=== PATIENT | male | born 1935 | race Caucasian/White ===

== ENCOUNTER 2019-09-17 18:50 | Inpatient (IN) | payer MEDICARE, BC ==
[~2019-09-17] VITALS: Ht 172.7 cm; Wt 69.4 kg
[2019-09-17] MEDS ORDERED: ASPIRIN325 MG PO (19:01)
[2019-09-17] MEDS ORDERED: OMEPRAZOLE40 MG PO (19:35)
[2019-09-17] MEDS ORDERED: GLUCOPHAGE500 MG PO (19:35)
[2019-09-17] MEDS ORDERED: FUROSEMIDE20 MG PO (19:36)
[2019-09-17] MEDS ORDERED: BUSPAR10 MG PO (19:36)
[2019-09-17] MEDS ORDERED: METOPROLOL TART50 MG PO (19:36)
[2019-09-17] MEDS ORDERED: CELEXA40 MG PO (19:37)
[2019-09-17] MEDS ORDERED: LIPITOR20 MG PO (19:37)
[2019-09-17] MEDS ORDERED: FLOMAX0.4 MG PO (19:37)
[2019-09-17] MEDS ORDERED: ATIVAN1 MG PO (19:37)
[2019-09-17] MEDS ORDERED: CENTRUM MEN'S1 EACH PO (19:38)
[2019-09-17] MEDS ORDERED: LEVEMIR IN100 UNITS/ SC (19:38)
[2019-09-17 19:57] LABS: BASOPHILS 0.5 % (0-2); HEMATOCRIT 30.3 % (42.0-54.0); HEMOGLOBIN 9.5 g/dL (13.5-17.5); IMMATURE GRANULOCYTES 0.2 % (0-5); LYMPHOCYTES 15.3 % (15-50); MCH 30.1 pg (26.0-34.0); MCHC 31.4 g/dL (31.0-37.0); MCV 95.9 fL (80.0-100.0); MEAN PLATELET VOLUME 9.7 fL (7.4-10.4); MONOCYTES 7.2 % (2-11); NEUTROPHILS 74.8 % (40-80); RBC 3.16 10x6/uL (4.20-6.10); RDW 13.6 % (11.5-14.5); WBC 9.5 10x3/uL (4.8-10.8)
[2019-09-17 19:59] LABS: PLATELET COUNT 207 10x3/uL (130-400)
[2019-09-17 20:01] LABS: CALC OSMOLALITY 289 mosm/kg (275-300); CALCIUM 9.4 mg/dL (8.5-10.1); CARBON DIOXIDE 30.3 mmol/L (21.0-32.0); CHLORIDE - SERUM 105 mmol/L (98-107); CREATININE - SERUM 2.1 mg/dL (0.6-1.3); GLUCOSE 169 mg/dL (74-106); POTASSIUM - SERUM 4.8 mmol/L (3.5-5.1); SODIUM 139 mmol/L (136-145); UREA NITROGEN 34 mg/dL (7-18); eGFR NON AFRICAN AMERICAN 32 mL/min (90-120)
--- NOTE | 2019-09-17 20:01 | NUR ---
STERI STRIPS PLACED ON WOUND ON PT'S LEFT HAND PER MD ORDERS. PT TOLERATED WELL.
[2019-09-17 20:15] LABS: ALKALINE PHOSPHATASE 68 U/L (30-120); ALT (SGPT) 16 U/L (10-68); CREATINE KINASE 117 UL (21-232); MAGNESIUM - SERUM 1.9 mg/dL (1.8-2.4); PRO BNP 1951 pg/mL (0-450); PROTEIN - SERUM 7.5 g/dL (6.4-8.2); THYROID STIMULATING HORMONE 4.31 uIU/mL (0.36-3.74)
[2019-09-17 20:16] LABS: APTT 30.3 SECONDS (22.8-39.4); INR 0.94 (0.85-1.17); PROTIME 12.5 SECONDS (11.6-15.0); TROPONIN-I < 0.017 ng/mL (0.000-0.060)
--- NOTE | 2019-09-17 20:25 | NUR ---
ATTEMPTED TO CALL REPORT TO FLOOR, NURSE UNAVAILABLE AT THIS TIME. WILL CALL BACK.
--- NOTE | 2019-09-17 21:30 | NUR ---
A&0 X 4. AT BEDSIDE. AMBULATES WITH STANDBY ASSIST. SUZETTE SARAH IN USE, SCDS AND I.S. IN ROOM. NO ORDERS FOR NPO AFTER MIDNIGHT, BUT ENCOURAGED PT TO FAST AFTER MIDNIGHT TO BE SAFE. DENIES WANTING A SNACK CURRENTLY. NO NEEDS VOICED, CTM.
[2019-09-18] VITALS (10 sets, daily range): BP systolic 104–153; BP diastolic 55–71; Ht 172.7 cm; Wt 69.4 kg
[2019-09-18 03:03] LABS: BILIRUBIN NEGATIVE (NEGATIVE); GLUCOSE NEGATIVE (NEGATIVE); KETONE NEGATIVE (NEGATIVE); NITRITE NEGATIVE (NEGATIVE); UROBILINOGEN NORMAL (NORMAL)
--- NOTE | 2019-09-18 09:45 | NUR ---
PT LAYING IN BED C/O PAIN 09/28, PROVIDED PAIN MEDS PER ORDER. PT A&O X4. PIV IN RIGHT HAND, PATENT, NON TENDER, NO REDNESS OR SWELLING. SKIN TEAR ON LEFT HAND, 3 STERISTRIPS C/D/I. LEFT ARM IN SLING. C/O WEAKNESS IN LLE. PT ABLE TO AMBULATE WITH TWO PERSON ASSIST, USES WALKER AT HOME. PT NPO. HARD OF HEARING, WEARS GLASSES TO READ. PT HAS FULL UPPER AND LOWER DENTURES. EDUCATED PT ON CL AND NEEDS. EDUCATED ON PREOP PREP. BED LOW, RAILS X2/ CL IN REACH. WILL CONTINUE TO MONITOR.
[2019-09-18 09:48] LABS: BASOPHILS 0.2 % (0-2); EOSINOPHILS 0.2 % (0-7); HEMATOCRIT 25.9 % (42.0-54.0); HEMOGLOBIN 8.4 g/dL (13.5-17.5); IMMATURE GRANULOCYTES 0.1 % (0-5); MCH 30.4 pg (26.0-34.0); MCHC 32.4 g/dL (31.0-37.0); MEAN PLATELET VOLUME 9.4 fL (7.4-10.4); NEUTROPHILS 68.5 % (40-80); PLATELET COUNT 183 10x3/uL (130-400); RBC 2.76 10x6/uL (4.20-6.10); RDW 13.7 % (11.5-14.5); WBC 8.2 10x3/uL (4.8-10.8)
[2019-09-18 09:52] LABS: MCV 93.8 fL (80.0-100.0)
[2019-09-18 10:12] LABS: % SATURATION 27 % (15-55); IRON 58 ug/dl (35-150); TOTAL IRON BIND CAPACITY 208 ug/dl (260-445); UNSAT IRON BIND CAPACITY 150 ug/dl (150-375)
[2019-09-18 10:26] LABS: CALC OSMOLALITY 286 mosm/kg (275-300); CALCIUM 9.1 mg/dL (8.5-10.1); CARBON DIOXIDE 29.8 mmol/L (21.0-32.0); CHLORIDE - SERUM 106 mmol/L (98-107); CREATININE - SERUM 1.8 mg/dL (0.6-1.3); FERRITIN 28 ng/mL (3-244); GLUCOSE 133 mg/dL (74-106); LDH 141 U/L (85-227); POTASSIUM - SERUM 4.5 mmol/L (3.5-5.1); SODIUM 140 mmol/L (136-145); UREA NITROGEN 28 mg/dL (7-18); eGFR NON AFRICAN AMERICAN 38 mL/min (90-120)
--- NOTE | 2019-09-18 10:45 | NUR ---
EDUCATED PT ON CONSENT FORMS, PT PROVIDED CONSENT AND SIGNED FORMS. PERFORMED EKG, PLACED IN CHART. PERFORMED HIP-CLEANSE, TOLERATED WELL. BED LOW, RAILS X2. CL IN REACH, VERBALIZED UNDERSTANDING. WILL CONTINUE TO MONITOR.
[2019-09-18 14:24] LABS: BILIRUBIN NEGATIVE (NEGATIVE); GLUCOSE NEGATIVE (NEGATIVE); KETONE NEGATIVE (NEGATIVE); NITRITE NEGATIVE (NEGATIVE); UROBILINOGEN NORMAL (NORMAL)
--- NOTE | 2019-09-18 17:00 | NUR ---
RECIEVED PT FROM PACU. PT APPEARS SLEEPY, DENIES PAIN. VS WNL. EDUCATED PT AND FAMILY ABOUT RESTRICTIONS ON LUE ROM AND LEAVING ARM IN SLING, NO WEIGHT BEARING, VERBALIZED UNDERSTANDING. BED LOW, RAILS X2. CL IN REACH. WILL CONTINUE TO MONITOR.
[2019-09-19] VITALS: BP 137/77
--- NOTE | 2019-09-19 02:26 | NUR ---
I have reviewed this patient and I concur with the Shift Assessment completed by the Licensed Practical Nurse today this shift.
[2019-09-19 04:00] VITALS: BP 145/69
[2019-09-19 07:24] LABS: BASOPHILS 0.6 % (0-2); EOSINOPHILS 0.2 % (0-7); HEMATOCRIT 22.6 % (42.0-54.0); IMMATURE GRANULOCYTES 0.1 % (0-5); MCH 29.7 pg (26.0-34.0); MEAN PLATELET VOLUME 9.2 fL (7.4-10.4); NEUTROPHILS 74.1 % (40-80); PLATELET COUNT 149 10x3/uL (130-400); RBC 2.36 10x6/uL (4.20-6.10); RDW 14.1 % (11.5-14.5); WBC 8.6 10x3/uL (4.8-10.8)
[2019-09-19 07:29] LABS: MCV 95.8 fL (80.0-100.0)
[2019-09-19 07:31] LABS: ALBUMIN 2.4 g/dL (3.4-5.0); ANION GAP 12.6 mmol/L (8-16); BILIRUBIN - TOTAL 0.31 mg/dL (0.2-1.3); CALCIUM 8.4 mg/dL (8.5-10.1); CARBON DIOXIDE 23.7 mmol/L (21.0-32.0); CREATININE - SERUM 1.9 mg/dL (0.6-1.3); POTASSIUM - SERUM 4.3 mmol/L (3.5-5.1); PROTEIN - SERUM 6.1 g/dL (6.4-8.2)
--- NOTE | 2019-09-19 08:00 | NUR ---
PATIENT IN BED WITH IV INTACT. NO COMPLAINTS OR SIGNS OF DISTRESS. SLING INTACT. CALL LIGHT WITHIN REACH.
--- NOTE | 2019-09-19 08:14 | NUR ---
NOTIFIED NICOLAS CHESTER ABOUT H&H
[2019-09-19 09:46] VITALS: BP 115/46
--- NOTE | 2019-09-19 10:56 | NUR ---
PATIENT IV IN RIGHT HAND LEAKING. REMOVED WITH CATH TIP INTACT. RESTARTED IN R FA, 20 G X 1 STICK. PATIENT TOLERATED WITH SMALL AMOUNT OF PAIN. NO COMPLAINTS. GAVE ANTIBIOTIC A LITTLE EARLY BECAUSE GOING TO BE GETTING BLOOD. NO COMPLAINTS AT THIS TIME SITTING UP IN CHAIR. STATES NO PAIN. CALL LIGHT WITHIN REACH. FAMILY AT BEDSIDE.
[2019-09-19 12:15] VITALS: BP 108/43
[2019-09-19] MEDS ORDERED: MIRALAX17 GM PO (13:24)
--- NOTE | 2019-09-19 13:30 | NUR ---
PATIENT FIRST UNIT OF BLOOD STARTED AT THIS TIME.
--- NOTE | 2019-09-19 13:45 | NUR ---
PATIENT IN BED WITH IV INTACT. BLOOD INFUSING. BS STABLE. NO COMPLAINTS OR SIGNS OF DISTRESS. CALL LIGHT WITHIN REACH.
--- NOTE | 2019-09-19 14:37 | OP ---
PATIENT NAME: BEVERLY JOHN MEDICAL RECORD: [id number] :31 LOCATION:D[id number] ADMISSION DATE:09/17/19 SURGEON: ANUPAM SPARKS MD DATE OF OPERATION: 09/18/2019 PREOPERATIVE DIAGNOSIS: Left proximal humerus fracture. POSTOPERATIVE DIAGNOSIS: Left proximal humerus fracture. PROCEDURE PERFORMED: ORIF, left proximal humerus. INDICATIONS FOR THE PROCEDURE: Mr. John is an 83-year-old right-hand dominant male who fell yesterday while getting up with his walker and injured his left shoulder. He was seen at the Emergency Department here at [facility] where x-rays showed a displaced proximal humerus fracture. He was admitted and orthopedic surgery was consulted. Arrangements were made for him to come to the operating room today for definitive repair. Risks, benefits, alternatives of surgery were discussed with the patient and his family and consent was obtained. DESCRIPTION OF PROCEDURE: The patient was met in the holding area where his identity and confirmation of procedure was performed. Left upper extremity was marked. He was taken to the operating room. He was placed supine on the operating table. Anesthesia was administered. He was then positioned in the beach chair position. Extremities were positioned and padded appropriately. The left upper extremity was prepped and draped in a sterile fashion. The patient received preoperative antibiotics and timeout was performed per initiating the case. Initiation of the case, a deltopectoral approach was utilized for exposure. We incised through the skin and subcutaneous tissues down to the deltopectoral interval. The cephalic vein was identified. We then entered the interval just medial to that and the shaft of the proximal humerus had displaced anteriorly, was easily visible. The tissues were dissected. The fracture hematoma was debrided. With some manipulation, we were then able to realign the proximal humerus segment. A #1 Vicryl suture was placed into the rotator cuff as well to assist with reestablishing the neck angle. A Biomet proximal humerus plate was then positioned along the lateral cortex. A K-wire was used to provisionally fix the plate to the bone. We are pleased with its position. A 3.5 screw was placed through the oblong hole in the shaft of the plate. Again, we confirmed our reduction of the head and neck segment and began placing locking screws proximally. We began with our central calcar screw, placed 4 more locking screws proximally into the head and another calcar screw into the head segment as well. These were all drilled locking through the plate guides, measured and then backed off 4 mm. One of the posterolateral proximal screws was also slightly prominent. It was therefore removed and replaced with a shorter screw. Two more locking screws were placed in the shaft to complete our fixation. Final images were obtained, showed good alignment fixation of the proximal humerus. The shoulder was taken through a live fluoroscopy. It did not show any evidence of hardware prominence. The wound was irrigated thoroughly with saline. Deltopectoral interval was then closed with a 2-0 Ethibond. Subcutaneous tissues were infiltrated with 0.25% Marcaine with epinephrine. These were then closed with 2-0 Vicryl suture. The skin was closed with mame and a sterile dressing was placed. The patient was placed back into a sling, turned back over to anesthesia. He was awakened, extubated, and taken to recovery room in stable condition. Rishi Walker was present, congressional assistant, and performed closure of the surgical wound. OPERATIVE REPORT [id number] BEVERLY JOHN POSTOPERATIVE PLAN: The patient is going to return to the floor for routine postoperative care. He received 24 hours postoperative antibiotics. Physical therapy be consulted to assist with mobility. These remain in the sling at all times with instructions for no shoulder range of motion. He can come out to perform elbow, wrist and hand range of motion. Plan discharge home with family. ANESTHESIA: General. COMPLICATIONS: None. ESTIMATED BLOOD LOSS: 100 mL. TRANSINT:[id number] Voice Confirmation ID: [id number] DOCUMENT ID: [id number] ANUPAM SPARKS MD at 1437 CC: [id number] DICTATION DATE: 09/18/19 1616 ROOF PLUMBER: 09/18/19 2322 ADM IN [place] [id number] [place] [address]
--- NOTE | 2019-09-19 15:13 | MORECARE ---
CASE MANAGEMENT DISCHARGE SUMMARY PATIENT: BEVERLY LEON UNIT: [id number] ADM DATE: 09/17/19 AGE: 83 : 33 SEX: M ROOM/BED: D.2220 AUTHOR: GIUSEPPE,DOC PHYSICIAN: REFERRING PHYSICIAN: AMADOR SUAREZ MD DATE OF SERVICE: 09/19/19 Discharge Plan Patient Name: BEVERLY LEON Facility: [facility]:[place] : 1935 Planned Disposition: Home Anticipated Discharge Date: Discharge Date: Expected LOS: Initial Reviewer: [email or web address] Initial Review Date: 09/17/2019 Generated: 09/19/19 4:13 pm Comments DCP- Discharge Planning Updated by [email or web address]: Mesha Rust on 09/19/19 2:[address] Patient Name: BEVERLY LEON Admission Status: ER Accout number: [id number] Admission Date: 09-17-2019 : 1935 Admission Diagnosis:OTH DISP FX OF UPPER END OF LEFT HUMERUS, INIT FOR CLOS Attending: AMADOR SUAREZ Current LOS: 2 Anticipated DC Date: Planned Disposition: Home Primary Insurance: MEDICARE A & B Discharge Planning Comments: CM met with patient to complete initial dc planning assessment. CM educated patient on the CM role and verbal consent given by patient to complete assessment. Patient lives at home with his and adult son where he is independent with her care. At discharge patient plans to return home and feels this is a safe discharge. CM discussed availability of home health, rehab services, and medical equipment. He did not want home health. Declination signed. He did need/want a quad cane. I have ordered that from [employer] and his daughter will be the pick up and delivery driver home. Patient denied known discharge needs at this time. CM will continue to follow and will assist as needed with dc plans/needs. Data Steward: Mesha Rust DCPIA - Discharge Planning Initial Assessment Updated by [email or web address]: Mesha Rust on 09/19/19 3:08 pm * Is the patient Alert and Oriented? Yes * How many steps to enter\exit or inside your home? * PCP DR HERNANDEZ * Pharmacy [facility] IN [place] * Preadmission Environment Home with Family * ADLs Independent * Equipment Rolling Walker * List name and contact numbers for known caregivers / representatives who currently or will assist patient after discharge: ANNABEL LEON [phone] * Verbal permission to speak to the caregivers and representatives has been obtained from the patient. N/A * Community resources currently utilized None * Additional services required to return to the preadmission environment? Yes * Can the patient safely return to the preadmission environment? Yes * Has this patient been hospitalized within the prior 30 days at any hospital? No External [facility]iders [facility] Contact Date: Service Request Date: Service Type: Resolution: Reviewer: Comments: Coverage Notice Reviewer: [id number] Ze Rust Notice Issued Date-Time: 09/19/2019 15:11 Notice Type: Patient Choice Letter Notice Delivered To: Patient Relationship to Patient: Puppy Walker Name: Delivery Method: HAND - Hand Delivered Karla Days: Prior Verbal Notification: Recipient Understood Notice: Yes Recipient Signature: Yes Med Rec Note Co-signed by Attending: Coverage Notice Comment: dme and no home health Patient Name: BEVERLY LEON Page [id number] at 1513 All edits/amendments must be made on the electronic document DICTATION DATE: 09/19/19 151 PROGRAM PROPOSALS COORDINATOR: GAYLE 09/19/19 151 RPT#: [id number] DC DATE: STATUS: ADM IN [facility] [address] [place] [address] END OF REPORT
[2019-09-19] MEDS ORDERED: HYDROCODON-ACE1 EAC7 PO (17:01)
--- NOTE | 2019-09-19 18:50 | NUR ---
PATIENT AND FAMILY RECIEVED DC INSTRUCTIONS AND PRESCRIPTIONS AT THIS TIME. IV REMOVED WITH CATH TIP INTACT. PATIENT AND FAMILY VERBALIZED UNDERSTANDING. NO QUESTIONS AT THIS TIME. WAITING FOR WC. CALL LIGHT WITHIN REACH.
--- NOTE | 2019-09-20 18:03 | MORECARE ---
CASE MANAGEMENT DISCHARGE SUMMARY PATIENT: BEVERLY LEON UNIT: [id number] ADM DATE: 09/17/19 AGE: 83 : 33 SEX: M ROOM/BED: D.2220 AUTHOR: GIUSEPPE,DOC PHYSICIAN: REFERRING PHYSICIAN: AMADOR SUAREZ MD DATE OF SERVICE: 09/20/19 Discharge Plan Patient Name: BEVERLY LEON Facility: [facility]:[place] : 1935 Planned Disposition: Home Anticipated Discharge Date: Discharge Date: 09/19/2019 Expected LOS: Initial Reviewer: [email or web address] Initial Review Date: 09/17/2019 Generated: 09/20/19 7:03 pm Comments DCP- Discharge Planning Updated by [id number]: Mesha Rust on 09/19/19 2:[address] Patient Name: BEVERLY LEON Admission Status: ER Accout number: [id number] Admission Date: 09-17-2019 : 1935 Admission Diagnosis:OTH DISP FX OF UPPER END OF LEFT HUMERUS, INIT FOR CLOS Attending: AMADOR SUAREZ Current LOS: 2 Anticipated DC Date: Planned Disposition: Home Primary Insurance: MEDICARE A & B Discharge Planning Comments: CM met with patient to complete initial dc planning assessment. CM educated patient on the CM role and verbal consent given by patient to complete assessment. Patient lives at home with his and adult son where he is independent with her care. At discharge patient plans to return home and feels this is a safe discharge. CM discussed availability of home health, rehab services, and medical equipment. He did not want home health. Declination signed. He did need/want a quad cane. I have ordered that from [employer] and his daughter will be the tractor driver teamster home. Patient denied known discharge needs at this time. CM will continue to follow and will assist as needed with dc plans/needs. Office Services Coordinator: Mesha Rust DCPIA - Discharge Planning Initial Assessment Updated by [email or web address]: Mesah Rust on 09/19/19 3:08 pm * Is the patient Alert and Oriented? Yes * How many steps to enter\exit or inside your home? * PCP DR HERNANDEZ * Pharmacy [facility] IN [place] * Preadmission Environment Home with Family * ADLs Independent * Equipment Rolling Walker * List name and contact numbers for known caregivers / representatives who currently or will assist patient after discharge: ANNABEL LEON [phone] * Verbal permission to speak to the caregivers and representatives has been obtained from the patient. N/A * Community resources currently utilized None * Additional services required to return to the preadmission environment? Yes * Can the patient safely return to the preadmission environment? Yes * Has this patient been hospitalized within the prior 30 days at any hospital? No Coverage Notice Reviewer: [email or web address] Ze Rust Notice Issued Date-Time: 09/19/2019 15:11 Notice Type: Patient Choice Letter Notice Delivered To: Patient Relationship to Patient: Keyboard Action Assembler Name: Delivery Method: HAND - Hand Delivered Karla Days: Prior Verbal Notification: Recipient Understood Notice: Yes Recipient Signature: Yes Med Rec Note Co-signed by Attending: Coverage Notice Comment: dme and no home health Last DP export: 09/19/19 2:13 p Patient Name: BEVERLY LEON Page [id number] at 1803 All edits/amendments must be made on the electronic document DICTATION DATE: 09/20/191802 ELECTROSTATIC PAINTER: GAYLE 09/20/19 180 RPT#: [id number] DC DATE:09/19/19 STATUS: DIS IN [facility] [address] [place] [address] END OF REPORT
== END 2019-09-19 19:15 | disposition home or self-care (01) | DRG 494 ==
LOC: D.ER 18:50 → D.MS 19:36
PROVIDERS: Family Medicine; Orthopaedic Surgery; ADMIT Emergency Medicine; ATTEND Emergency Medicine
PROC: 0PSD04Z Reposition Left Humeral Head with Internal Fixation Device, Open Approach (ICD-10-PCS; principal; 2019-09-18 11:00)
DX: S42.292A Other displaced fracture of upper end of left humerus, initial encounter for closed fracture (principal); W19.XXXA Unspecified fall, initial encounter; I25.10 Atherosclerotic heart disease of native coronary artery without angina pectoris; I10 Essential (primary) hypertension; E11.9 Type 2 diabetes mellitus without complications; F41.8 Other specified anxiety disorders; N40.0 Benign prostatic hyperplasia without lower urinary tract symptoms